=== PATIENT | female | born 1985 | race Caucasian/White ===

== ENCOUNTER 2018-03-29 23:14 | Emergency (ER) | payer MEDICAID ==
[~2018-03-29] VITALS: Ht 160 cm; Wt 93.0 kg
--- NOTE | 2018-03-29 23:14 | NUR ---
PT MICHEL ALS. TAKEN TO BED 11
[2018-03-29 23:16] VITALS: BP 154/76
--- NOTE | 2018-03-29 23:31 | NUR ---
BIBA C/O RT EAR PAIN X1 WEEK, ON SCENE PT HAD ELEVATED HR AND B/P PT STATES SHE WAS ANXIOUS ON SCENE. PT IS AWAKE, ACTING APPROPRIATE, W/ VSS ON ARRIVAL TO ED. NO BLEEDING OR TRAUMA TO RT EAR. PAIN 01/25. NO PMH, NKDA
--- NOTE | 2018-03-30 00:46 | NUR ---
Dr. Balderas evaluating patient at bedside.
[2018-03-30 00:55] VITALS: BP 148/74
--- NOTE | 2018-03-30 00:55 | NUR ---
Patient discharged with v/s stable. Written and verbal after care instructions given and explained. Patient alert, oriented and verbalized understanding of instructions. Ambulatory with steady gait. All questions addressed prior to discharge. ID band removed. Patient advised to follow up with PMD. Rx of MOTRIN AND CORTISPORIN given. Patient educated on indication of medication including possible reaction and side effects. Opportunity to ask questions provided and answered.
== END 2018-03-30 00:55 | disposition home or self-care (01) ==
LOC: MED 23:14
DX: H60.91 Unspecified otitis externa, right ear (principal); E11.9 Type 2 diabetes mellitus without complications
CPT/HCPCS: 82948; 99283